=== PATIENT | female | born 1930 | race Caucasian/White ===

== ENCOUNTER 2018-04-23 17:43 | Emergency (ER) | payer OTHER ==
--- NOTE | 2018-04-23 18:31 | RAD REPORT ---
EXAM DESCRIPTION: CT - [id number] - 04/23/2018 6:16 pm CLINICAL HISTORY: Trip and fall, head and neck injury COMPARISON: None. TECHNIQUE: Axial 5 mm thick images of the head were obtained. Axial 2 mm thick images of the cervic al spine were obtained with sagittal and coronal reconstruction images generated and reviewed. All CT scans are performed using dose optimization technique as appropriate and may include automated exposure control or mA/KV adjustment according to patient size. FINDINGS: No intracranial hemorrhage, mass, edema or acute intracranial finding. No suspicion for acute infarct ion. Moderate severity atrophy and chronic ischemic changes are present. Ventricles are in proportion to volume loss. Mastoid air cells and paranasal sinuses are clear. No globe or orbit abnormality see n. Minimal right parietal scalp hematoma is present. Cervical bodies are normal in height. There is a minimal anterior subluxation of C3 on C4. There is r eversal of the usual cervical lordosis at C5. All disc spaces except C2-3 are narrowed. Advanced face t joint degenerative changes are present throughout the upper cervical spine. Bony foraminal encroach ment is present at C3-4 and minimally at C4-5. Advanced right foraminal stenosis at C5-6 and mild on the right at C6-7. No fracture or acute bony abnormality. No paraspinal mass or hematoma. IMPRESSION: Moderate severity atrophy and chronic ischemic change. No acute intracranial finding sylvie ntifiable. Advanced cervical spine degenerative change. No acute finding.
--- NOTE | 2018-04-23 19:31 | ER ---
Nurse's Notes [facility] Name: Viviane Hall Age: 87 yrs Sex: Female : 1930 Arrival Date: 04/23/2018 Time: 17:53 Bed 15 Private MD: Diagnosis: Superficial injury of head;Laceration without foreign body of scalp Presentation: 04/23 17:53 Presenting complaint: EMS states: patient caught her foot on a step and tripped and mg2 sustained laceration at the back of his head few minutes RN CIRCULATING. negative loc, no n/v. patient is conscious, coherent, GCS- 15/15. Transition of care: patient was not received from another setting of care. Onset of symptoms was April 23, 2018. Risk Assessment: Do you want to hurt yourself or someone else? Patient reports no desire to harm self or others. Initial Sepsis Screen: Does the patient meet any 2 criteria? No. Patient's initial sepsis screen is negative. Does the patient have a suspected source of infection? No. Patient's initial sepsis screen is negative. Care prior to arrival: None. 17:53 Method Of Arrival: EMS: [facility] mg2 17:53 Acuity: LETI 3 mg2 Historical: - Home Meds: 17:58 aspirin 81 mg Oral chew 1 tab once daily [Active]; carvedilol 25 mg Oral tab 1 tab 2 mg2 times per day [Active]; Fish Oil Oral [Active]; hydrochlorothiazide 12.5 mg Oral tab 1 tab once daily [Active]; lisinopril 20 mg Oral tab 1 tab twice a day [Active]; nifedipine 90 mg Oral TbER 1 tab once daily [Active]; Vitamin C Oral [Active]; - PMHx: 17:58 Hypertension; mg2 - PSHx: 17:58 None; mg2 - Immunization history:: Flu vaccine is not up to date. - Social history:: Smoking status: Patient/guardian denies using tobacco, Patient/guardian denies using alcohol, street drugs, IV drugs. - Ebola Screening: : No symptoms or risks identified at this time. Screenin:00 Abuse screen: Denies threats or abuse. Denies injuries from another. Nutritional mg2 screening: No deficits noted. Tuberculosis screening: No symptoms or risk factors identified. Fall Risk Fall in past 12 months (25 points). Assessment: 18:03 General: Appears in no apparent distress. comfortable, Behavior is calm, cooperative, bp appropriate for age. Pain: Complains of pain in back of head. Neuro: Level of Consciousness is awake, alert, obeys commands, Oriented to person, place, time, situation, Appropriate for age. Cardiovascular: No deficits noted. Respiratory: Airway is patent Respiratory effort is even, unlabored, Respiratory pattern is regular, symmetrical. GI: No signs and/or symptoms were reported involving the gastrointestinal system. : No signs and/or symptoms were reported regarding the genitourinary system. EENT: No deficits noted. Derm: No deficits noted. Musculoskeletal: Circulation, motion, and sensation intact. Range of motion: intact in all extremities. Injury Description: Laceration sustained to back of head is superficial, 2.6 to 7.5 cm long, not bleeding, was sustained 30-60 minutes ago. a small amount of bleeding noted at this time. 18:31 Reassessment: PT RETURNED FROM CT. bp 18:58 Reassessment: ALL CURRENT ORDERS COMPLETED, WOUND REPAIR PENDING. bp 19:39 Reassessment: Patient appears in no apparent distress at this time. Patient and/or jd3 family updated on plan of care and expected duration. Pain level reassessed. Patient is alert, oriented x 3, equal unlabored respirations, skin warm/dry/pink. Vital Signs: 17:59 BP 157 / 94; Pulse 100; Resp 18; Pulse Ox 100% on R/A; Weight 61.69 kg; Height 5 ft. 1 mg2 in. (154.94 cm); Pain 0/10; 18:31 BP 180 / 82; Pulse 79; Resp 14; Pulse Ox 96% ; bp 18:59 BP 163 / 74; Pulse 77; Resp 14; Pulse Ox 95% ; bp 19:40 BP 187 / 80; Pulse 72; Resp 18 S; Pulse Ox 97% on R/A; jd3 17:59 Body Mass Index 25.70 (61.69 kg, 154.94 cm) mg2 ED Course: 17:53 Patient arrived in ED. mg2 17:56 Triage completed. mg2 17:56 Lisa Glover FNP-C is [facility]. kb 17:56 Guilherme Ruiz MD is Attending Physician. kb 17:57 Initial lab(s) drawn, by me, sent to lab. Inserted saline lock: 20 gauge forearm, using mh5 aseptic technique. Blood collected. 18:00 Arm band placed on. mg2 18:01 Patient has correct armband on for positive identification. mg2 18:03 Omer Underwood, RN is Primary Nurse. bp 18:03 Patient has correct armband on for positive identification. Placed in gown. Bed in low mh5 position. Call light in reach. Side rails up X2. Warm blanket given. Pulse ox on. NIBP on. 18:04 held in ED. mh5 18:[address] via stretcher. vm2 18:16 CT Head C Spine In Process Unspecified. EDMS 19:44 No provider procedures requiring assistance completed. IV discontinued, intact, jd3 bleeding controlled, No redness/swelling at site. Pressure dressing applied. Administered Medications: No medications were administered Outcome: 19:31 Discharge ordered by MD. kb 19:45 Discharged to home via wheelchair, with family. jd3 19:45 Condition: stable 19:45 Discharge instructions given to patient, family, Instructed on discharge instructions, follow up and referral plans. Demonstrated understanding of instructions, follow-up care. 19:48 Patient left the ED. jd3 Signatures: Dispatcher [employer] EDDE Lisa Glover, RIGHT OF WAY CLEARER-C RIGHT OF WAY CLEARER-Sonia Berger [facility] Nayeli Ochoa 2 Jony Welch RN RN jOmer Tiwari, RN RN Nima Mott RN RN mg2
--- NOTE | 2018-04-23 19:31 | EDPHYS ---
Physician Documentation [facility] Name: Viviane Hall Age: 87 yrs Sex: Female : 1930 Arrival Date: 04/23/2018 Time: 17:53 Bed 15 Private MD: ED Physician Guilherme Ruiz HPI: 04/23 18:40 This 87 yrs old Female presents to ER via EMS with complaints of Fall Injury. kb 18:40 Details of fall: The patient fell from an upright position, while walking. Onset: The kb symptoms/episode began/occurred just prior to arrival. Associated injuries: The patient sustained injury to the head, laceration. Severity of symptoms: At their worst the symptoms were mild, moderate, in the emergency department the symptoms are unchanged. The patient has not experienced similar symptoms in the past. The patient has not recently seen a physician. Pt reports she tripped at home, fell and hit her head. Denies LOC. . Historical: - Home Meds: 17:58 aspirin 81 mg Oral chew 1 tab once daily [Active]; carvedilol 25 mg Oral tab 1 tab 2 mg2 times per day [Active]; Fish Oil Oral [Active]; hydrochlorothiazide 12.5 mg Oral tab 1 tab once daily [Active]; lisinopril 20 mg Oral tab 1 tab twice a day [Active]; nifedipine 90 mg Oral TbER 1 tab once daily [Active]; Vitamin C Oral [Active]; - PMHx: 17:58 Hypertension; mg2 - PSHx: 17:58 None; mg2 - Immunization history:: Flu vaccine is not up to date. - Social history:: Smoking status: Patient/guardian denies using tobacco, Patient/guardian denies using alcohol, street drugs, IV drugs. - Ebola Screening: : No symptoms or risks identified at this time. ROS: 18:40 Constitutional: Negative for fever, chills, and weight loss, Cardiovascular: Negative kb for chest pain, palpitations, and edema, Respiratory: Negative for shortness of breath, cough, wheezing, and pleuritic chest pain, Abdomen/GI: Negative for abdominal pain, nausea, vomiting, diarrhea, and constipation, Back: Negative for injury and pain, MS/Extremity: Negative for injury and deformity, Neuro: Negative for headache, weakness, numbness, tingling, and seizure. 18:40 Skin: Positive for laceration(s), of the back of head. Exam: 18:40 Constitutional: This is a well developed, well nourished patient who is awake, alert, kb and in no acute distress. Eyes: Pupils equal round and reactive to light, extra-ocular motions intact. Lids and lashes normal. Conjunctiva and sclera are non-icteric and not injected. Cornea within normal limits. Periorbital areas with no swelling, redness, or edema. ENT: Nares patent. No nasal discharge, no septal abnormalities noted. Tympanic membranes are normal and external auditory canals are clear. Oropharynx with no redness, swelling, or masses, exudates, or evidence of obstruction, uvula midline. Mucous membranes moist. Neck: Trachea midline, no thyromegaly or masses palpated, and no cervical lymphadenopathy. Supple, full range of motion without nuchal rigidity, or vertebral point tenderness. No Meningismus. Chest/axilla: Normal chest wall appearance and motion. Nontender with no deformity. No lesions are appreciated. Cardiovascular: Regular rate and rhythm with a normal S1 and S2. No gallops, murmurs, or rubs. Normal PMI, no JVD. No pulse deficits. Respiratory: Lungs have equal breath sounds bilaterally, clear to auscultation and percussion. No rales, rhonchi or wheezes noted. No increased work of breathing, no retractions or nasal flaring. Abdomen/GI: Soft, non-tender, with normal bowel sounds. No distension or tympany. No guarding or rebound. No evidence of tenderness throughout. Skin: Warm, dry with normal turgor. Normal color with no rashes, no lesions, and no evidence of cellulitis. MS/ Extremity: Pulses equal, no cyanosis. Neurovascular intact. Full, normal range of motion. Neuro: Awake and alert, GCS 15, oriented to person, place, time, and situation. Cranial nerves II-XII grossly intact. Motor strength 5/5 in all extremities. Sensory grossly intact. Cerebellar exam normal. Normal gait. 18:40 Head/face: Noted is no obvious of injury or deformity except a laceration(s), that is superficial, that is linear. Vital Signs: 17:59 BP 157 / 94; Pulse 100; Resp 18; Pulse Ox 100% on R/A; Weight 61.69 kg; Height 5 ft. 1 mg2 in. (154.94 cm); Pain 0/10; 18:31 BP 180 / 82; Pulse 79; Resp 14; Pulse Ox 96% ; bp 18:59 BP 163 / 74; Pulse 77; Resp 14; Pulse Ox 95% ; bp 19:40 BP 187 / 80; Pulse 72; Resp 18 S; Pulse Ox 97% on R/A; jd3 17:59 Body Mass Index 25.70 (61.69 kg, 154.94 cm) mg2 Laceration: 19:31 Wound Repair of 5cm ( 2.0in ) subcutaneous laceration to back of head. Linear shaped.. kb Distal neuro/vascular/tendon intact. Wound prep: Extensive cleansing with hibiclenz by nurse, Wound irrigation with saline by nurse by me. Skin closed with 3 1-0 Danisha using staple gun. Patient tolerated well. MDM: 17:56 Patient medically screened. kb 18:39 Data reviewed: vital signs, nurses notes. Data interpreted: Pulse oximetry: on room air kb is 96 %. Interpretation: normal. Counseling: I had a detailed discussion with the patient and/or guardian regarding: the historical points, exam findings, and any diagnostic results supporting the discharge/admit diagnosis, radiology results, the need for outpatient follow up, a family practitioner, to return to the emergency department if symptoms worsen or persist or if there are any questions or concerns that arise at home. 04/23 18:01 Order name: CT Head C Spine; Complete Time: 18:35 kb 04/23 18:54 Order name: Wound Care: clean wound; Complete Time: 18:58 kb Administered Medications: No medications were administered Disposition: 04/24 06:32 Co-signature as Attending Physician, Guilherme Ruiz MD I agree with the assessment and rita plan of care. Disposition: 04/23/18 19:31 Discharged to Home. Impression: Superficial injury of head, Laceration without foreign body of scalp. - Condition is Stable. - Discharge Instructions: Head Injury, Adult, [id number], Laceration Care, Pediatric, [id number]. - Medication Reconciliation Form, Thank You Letter, Antibiotic Education, Prescription Opioid Use form. - Follow up: Private Physician; When: 2 - 3 days; Reason: Recheck today's complaints, Continuance of care, Re-evaluation by your physician. Follow up: Emergency Department; When: As needed; Reason: Worsening of condition. Signatures: Dispatcher [employer] EDLisa Garber, RAILROAD BRAKE REPAIRER-C RAILROAD BRAKE REPAIRER-Guilherme John MD MD cha Davies, Jonathon, RN RN jNima Owens RN RN mg2 Corrections: (The following items were deleted from the chart) 04/23 19:48 19:31 04/23/2018 19:31 Discharged to Home. Impression: Superficial injury of head; jd3 Laceration without foreign body of scalp. Condition is Stable. Forms are Medication Reconciliation Form, Thank You Letter, Antibiotic Education, Prescription Opioid Use. Follow up: Private Physician; When: 2 - 3 days; Reason: Recheck today's complaints, Continuance of care, Re-evaluation by your physician. Follow up: Emergency Department; When: As needed; Reason: Worsening of condition. kb
== END 2018-04-23 19:48 | disposition home or self-care (01) ==
LOC: ER 17:43
PROC: 0JQ00ZZ Repair Scalp Subcutaneous Tissue and Fascia, Open Approach (ICD-10-PCS; principal; 2018-04-23)
DX: S01.01XA Laceration without foreign body of scalp, initial encounter (principal); W01.10XA Fall on same level from slipping, tripping and stumbling with subsequent striking against unspecified object, initial encounter; Y93.01 Activity, walking, marching and hiking; Y92.009 Unspecified place in unspecified non-institutional (private) residence as the place of occurrence of the external cause; Z79.82 Long term (current) use of aspirin; I10 Essential (primary) hypertension
CPT/HCPCS: 70450; 72125; 99284